=== PATIENT | female | born 1990 | race Caucasian/White ===

== ENCOUNTER → 2018-09-28 10:41 | Outpatient (REF) | payer OTHER, MEDICAID, SELFPAY ==
[2018-09-28 11:53] LABS: Urine Tetrahydrocannabinol Negative (Negative)
[2018-09-28 11:54] LABS: Urine Amphetamines Negative (Negative); Urine Barbiturates Negative (Negative); Urine Benzodiazepines Negative (Negative); Urine Cocaine Negative (Negative); Urine MDMA Negative (Negative); Urine Methadone Negative (Negative); Urine Methamphetamines Negative (Negative); Urine Morphine/Opi cutoff 2000 Negative (Negative); Urine Oxycodone Negative (Negative); Urine Phencyclidine Negative (Negative); Urine Tricyclic Antidepressant Negative (Negative)
== END ==
LOC: LAB 10:41
PROVIDERS: Visit Provider Family Medicine Sleep Medicine
DX: G47.19 Other hypersomnia (principal)
CPT/HCPCS: 80305

== ENCOUNTER 2019-03-23 09:34 | Emergency (ER) | payer OTHER, MEDICAID, SELFPAY ==
--- NOTE | 2019-03-23 09:49 | DI.RAD.S_ITS ---
PROCEDURE: XR KNEE LT 3V INDICATIONS: knee pain, crunching TECHNIQUE: 3 views of the knee were acquired. COMPARISON: None. FINDINGS: Bones: No fractures or dislocations. No suspicious bony lesions. Soft tissues: No joint effusion. No suspicious soft tissue calcifications. IMPRESSION: No acute fracture. No osseous lesion. If symptoms and/or clinical suspicion for pathology persist, further assessment with repeat, or advanced imaging (e.g., CT, MRI, or bone scan) may be helpful for further assessment. Dictated by: Terri Perdomo M.D. on 03/23/2019 at 10:17 Approved by: Terri Perdomo M.D. on 03/23/2019 at 10:17
[2019-03-23 09:54] VITALS: BP 122/76; PULSE 77; RESP 15; TEMP 36.2; O2SAT 99; BMI 25.0
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
== END 2019-03-23 10:28 | disposition home or self-care (01) ==
PROVIDERS: Emergency Provider Emergency Medicine
DX: M25.562 Pain in left knee (principal); R29.898 Other symptoms and signs involving the musculoskeletal system
CPT/HCPCS: 73562; 99282; 99283

== ENCOUNTER → 2019-10-12 10:18 | Outpatient (CLI) | payer OTHER, MEDICAID, SELFPAY ==
[2019-10-12 11:22] LABS: Add Manual Diff / Slide Review NO; Basophils Absolute Auto 0 /uL (0-100); Basophils Percent Auto 0.6 % (0-2); Eosinophils Absolute Auto 300 /uL (0-450); Eosinophils Percent Auto 4.2 % (2-4); Hematocrit 36.7 % (36-46); Hemoglobin 12.6 g/dL (12.0-16.0); Lymphocytes Absolute Auto 2000 /uL (1100-4500); Lymphocytes Percent Auto 25.4 % (25-40); Mean Corpuscular HGB Conc 34.4 % (30-36); Mean Corpuscular Hemoglobin 29.8 PG (26-34); Mean Corpuscular Volume 86.6 fL (80-100); Monocytes Absolute Auto 400 /uL (0-900); Monocytes Percent Auto 5.4 % (3-14); Neutrophils Absolute Auto 5000 /uL (1500-7000); Neutrophils Percent Auto 64.4 % (50-75); Platelet Count 296 X10^3/uL (150-400); Red Blood Cell Count 4.24 X10^6/uL (4.0-5.2); Red Cell Distribution Width 12.1 % (11.6-14.8); White Blood Cell Count 7.7 X10^3/uL (4.5-11.0)
[2019-10-12 12:03] LABS: HEMOLYSIS < 15 (0-50); Iron 77 ug/dL (37-170)
[2019-10-12 12:13] LABS: Percent Iron Saturation 23 % (15-50); Total Iron Binding Capacity 336 ug/dL (265-497); Transferrin 269 mg/dL (206-381)
[2019-10-12 12:33] LABS: TSH w/ Reflex to FT4 0.51 uIU/mL (0.47-4.68)
[2019-10-12 12:37] LABS: Ferritin 52.2 ng/mL (6.27-137)
== END ==
PROVIDERS: PCP Nurse Practitioner Family; Visit Provider Nurse Practitioner Family
DX: N92.0 Excessive and frequent menstruation with regular cycle (principal)
CPT/HCPCS: 36415; 82728; 83540; 83550; 84443; 85025